=== PATIENT | male | born 1990 | race American Indian/Alaskan Native ===

== ENCOUNTER 2019-03-12 09:14 | Emergency (ER) | payer MEDICAID ==
[2019-03-12 09:24] VITALS: BP 123/86
--- NOTE | 2019-03-12 10:40 | XRay Report ---
CHEST 2 VIEWS INDICATION: c/o fluid in lungs. COMPARISON: None. FINDINGS: Support devices: None. Heart: Within normal limits. Lungs/Pleura: No acute air space or interstitial disease. Minimal blunting left costophrenic angle. IMPRESSION: Suspect tiny left effusion. Signer Name: Cody Griffith MD Signed: 03/12/2019 10:35 AM Workstation Name: [id number]
--- NOTE | 2019-03-12 10:59 | Emergency Department Report ---
ED General Adult HPI - General Chief complaint: Upper Respiratory Infection Stated complaint: FLUID ON LUNGS Time Seen by Provider: 03/12/19 09:58 Source: patient Mode of arrival: Ambulatory Limitations: No Limitations - History of Present Illness Initial comments: 28-year-old -Niuean male with history of HIV Zentz for evaluation due to having a chest x-ray that showed fluid in his lungs 2 days ago. Patient states he was contacted by his primary care physician and informed of his chest x-rays results and told to seek emergency treatment. He denies any chest pain, cough, history of DVT/PE, recent long travel. He states he is having mild shortness of breath with ambulation over the past week. He also reports that when he was at his doctor's office 3 days ago, his pulse ox was noted to be low in the 70s. He denies any leg pain, however states he has had intermittent swelling bilaterally in his legs over the past week. - Related Data Previous Rx's Medication Instructions Recorded Last Taken Type Ferrous Sulfate 325 mg PO BID #60 tablet. 05/05/18 Unknown Rx Allergies Allergy/AdvReac Type Severity Reaction Status Date / Time No Known Allergies Allergy Unverified 05/03/18 10:07 ED Review of Systems ROS: Stated complaint: FLUID ON LUNGS Other details as noted in HPI Comment: All other systems reviewed and negative Respiratory: SOB with exertion. denies: cough, orthopnea, SOB at rest ED Past Medical Hx - Past Medical History Previous Medical History?: Yes Hx HIV: Yes - Surgical History Past Surgical History?: No - Social History Smoking Status: Current Every Day Smoker Substance Use Type: Marijuana - Medications Home Medications: Home Medications Medication Instructions Recorded Confirmed Last Taken Type Ferrous Sulfate 325 mg PO BID #60 tablet. 05/05/18 Unknown Rx ED Physical Exam - General Limitations: No Limitations General appearance: alert, in no apparent distress - Head Head exam: Present: atraumatic, normocephalic - Eye Eye exam: Present: normal appearance - ENT ENT exam: Present: mucous membranes moist - Neck Neck exam: Present: normal inspection, full ROM. Absent: lymphadenopathy - Respiratory Respiratory exam: Present: normal lung sounds bilaterally. Absent: respiratory distress, wheezes, rales, rhonchi, chest wall tenderness - Cardiovascular Cardiovascular Exam: Present: regular rate, normal rhythm. Absent: systolic murmur, diastolic murmur, rubs, gallop - GI/Abdominal GI/Abdominal exam: Present: soft, normal bowel sounds. Absent: distended, tenderness, guarding, rebound, rigid - Rectal Rectal exam: Present: deferred - Extremities Exam Extremities exam: Present: normal inspection. Absent: calf tenderness (no sw elling noted) ED Course Vital Signs 03/12/19 09:20 Temperature 99 F Pulse Rate 105 H Respiratory 20 Rate Blood Pressure 123/86 O2 Sat by Pulse 100 Oximetry ED Medical Decision Making - Lab Data Result diagrams: 03/12/19 11:51 03/12/19 11:51 Lab Results 03/12/19 03/12/19 03/12/19 Range/Units 11:51 11:51 11:51 WBC 7.0 (4.5-11.0) K/mm3 RBC 4.04 (3.65-5.03) M/mm3 Hgb 9.2 L (11.8-15.2) gm/dl Hct 28.8 L (35.5-45.6) % MCV 71 L (84-94) fl MCH 23 L (28-32) pg MCHC 32 (32-34) % RDW 16.4 H (13.2-15.2) % Plt Count 304 (140-440) K/mm3 Lymph % (Auto) 29.2 (13.4-35.0) % [place] % (Auto) 12.6 H (0.0-7.3) % Eos % (Auto) 0.7 (0.0-4.3) % Baso % (Auto) 0.2 (0.0-1.8) % Lymph # 2.0 (1.2-5.4) K/mm3 [place] # 0.9 H (0.0-0.8) K/mm3 Eos # 0.0 (0.0-0.4) K/mm3 Baso # 0.0 (0.0-0.1) K/mm3 Seg Neutrophils % 57.3 (40.0-70.0) % Seg Neutrophils # 4.0 (1.8-7.7) K/mm3 D-Dimer 161.65 (0-234) ng/mlDDU Sodium 138 (137-145) mmol/L Potassium 4.4 (3.6-5.0) mmol/L Chloride 102.7 (98-107) mmol/L Carbon Dioxide 20 L (22-30) mmol/L Anion Gap 20 mmol/L BUN 26 H (9-20) mg/dL Creatinine 1.4 (0.8-1.5) mg/dL Estimated GFR > 60 ml/min BUN/Creatinine Ratio 19 % Glucose 81 (75-100) mg/dL Calcium 9.7 (8.4-10.2) mg/dL Total Bilirubin 0.50 (0.1-1.2) mg/dL AST 33 (5-40) units/L ALT 19 (7-56) units/L Alkaline Phosphatase 100 (35-129) units/L NT-Pro-B Natriuret Pep 38.78 (0-450) pg/mL Total Protein 10.5 H (6.3-8.2) g/dL Albumin 4.0 (3.9-5) g/dL Albumin/Globulin Ratio 0.6 % - Radiology Data Radiology results: report reviewed Two-view chest x-ray shows suspected tiny left effusion - Medical Decision Making Patient eloped prior to reassessment and lab results. Critical care attestation.: If time is entered above; I have spent that time in minutes in the direct care of this critically ill patient, excluding procedure time. ED Disposition Clinical Impression: Pleural effusion, left Disposition: ELOPED Is pt being admited?: No Condition: Stable Referrals: CULLEN DEAN MD [Staff Physician] - 2-3 Days
[2019-03-12 12:38] LABS: Basophils % (Auto) 0.2 % (0.0-1.8); Eosinophils % (Auto) 0.7 % (0.0-4.3); Hematocrit 28.8 % (35.5-45.6); Hemoglobin 9.2 gm/dl (11.8-15.2); Lymphocytes % (Auto) 29.2 % (13.4-35.0); Mean Corpuscular HGB Conc 32 % (32-34); Mean Corpuscular Volume 71 fl (84-94); Monocytes # (Auto) 0.9 K/mm3 (0.0-0.8); Monocytes % (Auto) 12.6 % (0.0-7.3); Platelet Count 304 K/mm3 (140-440); Red Blood Count 4.04 M/mm3 (3.65-5.03); Red Cell Distribution Width 16.4 % (13.2-15.2)
[2019-03-12 13:02] LABS: Alanine Aminotransferase 19 units/L (7-56); BUN/Creatinine Ratio 19; Blood Urea Nitrogen 26 mg/dL (9-20); Calcium 9.7 mg/dL (8.4-10.2); Hemolysis Index 12
== END 2019-03-12 13:21 | disposition left against medical advice (07) ==
LOC: ED 09:14
DX: J90 Pleural effusion, not elsewhere classified (principal); F17.200 Nicotine dependence, unspecified, uncomplicated; F12.10 Cannabis abuse, uncomplicated; Z21 Asymptomatic human immunodeficiency virus [HIV] infection status; Z79.899 Other long term (current) drug therapy
CPT/HCPCS: 36415; 71046; 80053; 83880; 85025; 85379

== ENCOUNTER 2019-07-10 12:59 | Emergency (ER) | payer SELFPAY ==
[2019-07-10 13:12] VITALS: BP 136/94
[2019-07-10] MEDS ORDERED: IBUPROFEN 600 MG TAB PO ONE (13:39)
[2019-07-10] MEDS ORDERED: HYDROcodone/ACETAMINOPHEN 7.5-325MG TAB PO ONE (13:39)
--- NOTE | 2019-07-10 13:43 | Emergency Department Report ---
- General Chief complaint: Skin/Abscess/Foreign Body Stated complaint: LFT ARM BOIL/PAIN Time Seen by Provider: 07/10/19 13:29 Source: patient Mode of arrival: Ambulatory Limitations: No Limitations - History of Present Illness Initial comments: 28-year-old -[place]ian male presents to the emergency room for a boil under his left axillary x3 to 4 days. Patient does admit that he is immune compromise of HIV. Patient states he takes all his medications as prescribed. Patient denies any fever chills no nausea no vomiting no chest pain or shortness of breath. complaint: abscess/boil Onset/Timin -: days(s) Tetanus Up to Date: yes Severity: moderate Quality: stabbing, aching, sharp Consistency: constant Improves with: none Worsens with: palpation, movement Context: none Associated symptoms: denies other symptoms - Related Data Previous Rx's Medication Instructions Recorded Last Taken Type Ferrous Sulfate 325 mg PO BID #60 tablet. 05/05/18 Unknown Rx Acetaminophen/Codeine [Tylenol 1 tab PO Q6H PRN #12 tab 07/10/19 Unknown Rx /Codeine # 3 tab] Doxycycline Hyclate [Doxycycline 100 mg PO Q12HR 10 Days #20 tab 07/10/19 Unknown Rx Hyclate TAB] Ibuprofen [Motrin 600 MG tab] 600 mg PO Q8H PRN #21 tablet 07/10/19 Unknown Rx Allergies Allergy/AdvReac Type Severity Reaction Status Date / Time No Known Allergies Allergy Unverified 05/03/18 10:07 Abscess Boil HPI - HPI Chief Complaint: Skin/Abscess/Foreign Body Stated Complaint: LFT ARM BOIL/PAIN Time Seen by Provider: 07/10/19 13:29 Home Medications: Previous Rx's Medication Instructions Recorded Last Taken Type Ferrous Sulfate 325 mg PO BID #60 tablet. 05/05/18 Unknown Rx Acetaminophen/Codeine [Tylenol 1 tab PO Q6H PRN #12 tab 07/10/19 Unknown Rx /Codeine # 3 tab] Doxycycline Hyclate [Doxycycline 100 mg PO Q12HR 10 Days #20 tab 07/10/19 Unknown Rx Hyclate TAB] Ibuprofen [Motrin 600 MG tab] 600 mg PO Q8H PRN #21 tablet 07/10/19 Unknown Rx Allergies/Adverse Reactions: Allergies Allergy/AdvReac Type Severity Reaction Status Date / Time No Known Allergies Allergy Unverified 05/03/18 10:07 ED Review of Systems ROS: Stated complaint: LFT ARM BOIL/PAIN Other details as noted in HPI Comment: All other systems reviewed and negative ED Past Medical Hx - Past Medical History Hx HIV: Yes - Social History Smoking Status: Never Smoker Substance Use Type: Marijuana - Medications Home Medications: Home Medications Medication Instructions Recorded Confirmed Last Taken Type Ferrous Sulfate 325 mg PO BID #60 tablet. 05/05/18 Unknown Rx Acetaminophen/Codeine [Tylenol 1 tab PO Q6H PRN #12 tab 07/10/19 Unknown Rx /Codeine # 3 tab] Doxycycline Hyclate [Doxycycline 100 mg PO Q12HR 10 Days #20 tab 07/10/19 Unknown Rx Hyclate TAB] Ibuprofen [Motrin 600 MG tab] 600 mg PO Q8H PRN #21 tablet 07/10/19 Unknown Rx ED Physical Exam - General Limitations: No Limitations General appearance: alert, in no apparent distress - Head Head exam: Present: atraumatic, normocephalic - Eye Eye exam: Present: normal appearance - ENT ENT exam: Present: mucous membranes moist - Neurological Exam Neurological exam: Present: alert, oriented X3, normal gait - Psychiatric Psychiatric exam: Present: normal affect, normal mood - Expanded Skin Exam Expanded Type of lesion: Present: abscess Distribution of rash: other (Left axillary) Description of rash: Present: size (Golf ball), tenderness, erythematous, swelling, fluctuant ED Course Vital Signs 07/10/19 13:09 Temperature 98.6 F Pulse Rate 89 Respiratory 18 Rate Blood Pressure 136/94 O2 Sat by Pulse 100 Oximetry - I & D Left Arm Type of Procedure: Simple Site: 3 x 3 cm Blade Size: 11 I & D Procedure: betadine prep, sterile drapes applied, sterile dressing applied Progress: Patient tolerated procedure well ED Medical Decision Making - Medical Decision Making 28-year-old -[place]ian male presents to the emergency room for a boil under his left axillary x3 to 4 days. Patient does admit that he is immune compromise of HIV. Patient states he takes all his medications as prescribed. Patient denies any fever chills no nausea no vomiting no chest pain or shortness of breath. Critical care attestation.: If time is entered above; I have spent that time in minutes in the direct care of this critically ill patient, excluding procedure time. ED Disposition Clinical Impression: Abscess of left axilla Disposition: - TO HOME OR SELFCARE Is pt being admited?: No Does the pt Need Aspirin: No Condition: Stable Instructions: Abscess (ED) Additional Instructions: Complete antibiotics as prescribed. Take pain medication as needed do not operate heavy machinery while taking Tylenol 3. Keep wound clean and dry follow-up with your primary care provider. Prescriptions: Doxycycline Hyclate [Doxycycline Hyclate TAB] 100 mg PO Q12HR 10 Days #20 tab Ibuprofen [Motrin 600 MG tab] 600 mg PO Q8H PRN #21 tablet PRN Reason: Pain Acetaminophen/Codeine [Tylenol /Codeine # 3 tab] 1 tab PO Q6H PRN #12 tab PRN Reason: Pain , Severe (7-10) Referrals: PRIMARY CARE, [Primary Care Provider] - 3-5 Days [facility] [Provider Group] - 3-5 Days
[2019-07-10] MEDS ORDERED: LIDOCAINE (2%) 20 MG/1 ML VIAL 20 ML MDV INFILTRATI ONE (14:00)
== END 2019-07-10 15:05 | disposition home or self-care (01) ==
LOC: ED 12:59
DX: L02.412 Cutaneous abscess of left axilla (principal); F12.10 Cannabis abuse, uncomplicated; Z79.1 Long term (current) use of non-steroidal anti-inflammatories (NSAID); Z79.899 Other long term (current) drug therapy; Z21 Asymptomatic human immunodeficiency virus [HIV] infection status

== ENCOUNTER 2021-05-31 07:14 | Emergency (ER) | payer MEDICARE ==
[2021-05-31 07:43] VITALS: BP 123/74
[2021-05-31] MEDS ORDERED: oxyCODONE /ACETAMINOPHEN 5-325MG TAB PO ONE (08:42)
[2021-05-31] MEDS ORDERED: LIDOCAINE (1%) 10 MG/1 ML VIAL 20 ML MDV INFILTRATI ONE (08:42)
[2021-05-31] MEDS ORDERED: IBUPROFEN 800 MG TAB PO STA (08:42)
--- NOTE | 2021-05-31 08:49 | Emergency Department Report ---
ED General Adult HPI - General Chief complaint: Skin/Abscess/Foreign Body Stated complaint: ABSCESS Time Seen by Provider: 05/31/21 08:20 Source: patient Mode of arrival: Ambulatory Limitations: No Limitations - History of Present Illness Initial comments: 30-year-old -[place] Islander male patient presents complaints of left axillary abscess x1 week. He states history of a similar abscess in the area a few years ago. He denies any IV drug use, fever/chills/sweats, or difficulty moving his arm. He rates his pain as a 10/10 in severity. Patient has past medical history of HIV -: Sudden - Related Data Previous Rx's Medication Instructions Recorded Last Taken Type Ferrous Sulfate 325 mg PO BID #60 tablet. 05/05/18 Unknown Rx Acetaminophen/Codeine [Tylenol 1 tab PO Q6H PRN #12 tab 07/10/19 Unknown Rx /Codeine # 3 tab] Doxycycline Hyclate [Doxycycline 100 mg PO Q12HR 10 Days #20 tab 07/10/19 Unknown Rx Hyclate TAB] Ibuprofen [Motrin 600 MG tab] 600 mg PO Q8H PRN #21 tablet 07/10/19 Unknown Rx Acetaminophen/Codeine [Tylenol 1 tab PO Q8H PRN #8 tab 05/31/21 Unknown Rx /Codeine # 3 tab] Clindamycin [Clindamycin CAP] 300 mg PO Q6H 10 Days #40 cap 05/31/21 Unknown Rx Ibuprofen [Motrin 800 MG tab] 800 mg PO TID PRN #20 tablet 05/31/21 Unknown Rx Mupirocin [Bactroban 2% OINT] 1 applic TP TID 10 Days #1 tube 05/31/21 Unknown Rx Allergies Allergy/AdvReac Type Severity Reaction Status Date / Time No Known Allergies Allergy Unverified 05/03/18 10:07 ED Review of Systems ROS: Stated complaint: ABSCESS Other details as noted in HPI Constitutional: denies: chills, fever, malaise Musculoskeletal: denies: joint swelling, arthralgia Skin: as per HPI Neurological: denies: numbness, paresthesias ED Past Medical Hx - Past Medical History Hx HIV: Yes - Social History Smoking Status: Never Smoker Substance Use Type: Marijuana - Medications Home Medications: Home Medications Medication Instructions Recorded Confirmed Last Taken Type Ferrous Sulfate 325 mg PO BID #60 tablet. 05/05/18 Unknown Rx Acetaminophen/Codeine [Tylenol 1 tab PO Q6H PRN #12 tab 07/10/19 Unknown Rx /Codeine # 3 tab] Doxycycline Hyclate [Doxycycline 100 mg PO Q12HR 10 Days #20 tab 07/10/19 Unknown Rx Hyclate TAB] Ibuprofen [Motrin 600 MG tab] 600 mg PO Q8H PRN #21 tablet 07/10/19 Unknown Rx Acetaminophen/Codeine [Tylenol 1 tab PO Q8H PRN #8 tab 05/31/21 Unknown Rx /Codeine # 3 tab] Clindamycin [Clindamycin CAP] 300 mg PO Q6H 10 Days #40 cap 05/31/21 Unknown Rx Ibuprofen [Motrin 800 MG tab] 800 mg PO TID PRN #20 tablet 05/31/21 Unknown Rx Mupirocin [Bactroban 2% OINT] 1 applic TP TID 10 Days #1 tube 05/31/21 Unknown Rx ED Physical Exam - General Limitations: No Limitations General appearance: alert, in no apparent distress - Head Head exam: Present: atraumatic, normocephalic - Eye Eye exam: Present: normal appearance - Respiratory Respiratory exam: Absent: respiratory distress - Cardiovascular Cardiovascular Exam: Present: regular rate - Expanded Upper Extremity Exam Left Shoulder Exam: Present: normal inspection, full ROM Upper Arm exam: Present: full ROM, other (Approximately 2 to 3 cm round erythemic abscess noted with significant tenderness to palpation and central fluctuance; mild surrounding erythema noted;) - Neurological Exam Neurological exam: Present: alert, oriented X3 - Psychiatric Psychiatric exam: Present: normal affect, normal mood - Skin Skin exam: Present: warm, dry, intact ED Course Vital Signs 05/31/21 07:40 Temperature 98.6 F Pulse Rate 82 Respiratory 16 Rate Blood Pressure 123/74 [Left] O2 Sat by Pulse 96 Oximetry - I & D Left Arm Site: Left axilla Blade Size: 11 I & D Procedure: betadine prep, sterile drapes applied, sterile dressing applied Progress: 8 cc of lidocaine 1% without epi used to anesthetize area. Moderate purulent drainage obtained from wound. Wound culture sent. Patient had minimal bleeding and tolerated procedure well without any immediate complications ED Medical Decision Making - Medical Decision Making 30-year-old -[place] male patient presents complaints of left axillary abscess x1 week. He states history of a similar abscess in the area a few years ago. He denies any IV drug use, fever/chills/sweats, or difficulty moving his arm. He rates his pain as a 10/10 in severity. Patient has past medical history of HIV I&D performed. Prescription for clindamycin and mupirocin given for home. Discussed in detail wound care and signs and symptoms that should prompt immediate return to the ED with patient verbalized understanding. He is to return to the ED in 2 days for wound recheck or follow-up with his primary care doctor for wound recheck. Critical care attestation.: If time is entered above; I have spent that time in minutes in the direct care of this critically ill patient, excluding procedure time. ED Disposition Clinical Impression: Abscess of axilla, left Disposition: 01 HOME / SELF CARE / HOMELESS Is pt being admited?: No Condition: Stable Instructions: Skin Abscess, [id number], Incision and Drainage, Care After Prescriptions: Mupirocin [Bactroban 2% OINT] 1 applic TP TID 10 Days #1 tube Clindamycin [Clindamycin CAP] 300 mg PO Q6H 10 Days #40 cap Ibuprofen [Motrin 800 MG tab] 800 mg PO TID PRN #20 tablet PRN Reason: Pain, Moderate (4-6) Acetaminophen/Codeine [Tylenol /Codeine # 3 tab] 1 tab PO Q8H PRN #8 tab PRN Reason: Pain , Severe (7-10) Referrals: PRIMARY CARE, [Referring] - 3-5 Days Forms: Work/School Release Form(ED)
== END 2021-05-31 10:31 | disposition home or self-care (01) ==
LOC: ED 07:14
DX: L02.412 Cutaneous abscess of left axilla (principal); F12.90 Cannabis use, unspecified, uncomplicated; Z79.899 Other long term (current) drug therapy
CPT/HCPCS: 10060; 87076; 87116; 87186; 99283; J3490

== ENCOUNTER 2021-12-06 07:18 | Emergency (ER) | payer MEDICARE ==
--- NOTE | 2021-12-06 14:49 | Emergency Department Report ---
ED General Adult HPI - General Chief complaint: Skin/Abscess/Foreign Body Stated complaint: BOIL ON BUTTOCKS Time Seen by Provider: 12/06/21 14:26 Source: patient Mode of arrival: Ambulatory Limitations: No Limitations - History of Present Illness Initial comments: Patient is a 31-year-old HIV-positive male who presents with rectal pain and what he believes is an abscess as well as what he believes is an abscess in his right groin. He denies any fever or chills. He has had some mild sore throat, myalgias and fatigue over the last several days. He states that the "abscess" has been there for about a week. He has been vaccinated for monkey pox sometime within the last 3 weeks. He does not know his viral load or CD4 count as he has not been seeing the doctor much since COVID started. Associated Symptoms: fever/chills, headaches, malaise, rash. denies: confusion, chest pain, cough, diaphoresis, loss of appetite, nausea/vomiting, seizure, shortness of breath, syncope, weakness Treatments Prior to Arrival: none - Related Data Previous Rx's Medication Instructions Recorded Last Taken Type Ferrous Sulfate 325 mg PO BID #60 tablet. 05/05/18 Unknown Rx Acetaminophen/Codeine [Tylenol 1 tab PO Q6H PRN #12 tab 07/10/19 Unknown Rx /Codeine # 3 tab] Doxycycline Hyclate [Doxycycline 100 mg PO Q12HR 10 Days #20 tab 07/10/19 Unknown Rx Hyclate TAB] Ibuprofen [Motrin 600 MG tab] 600 mg PO Q8H PRN #21 tablet 07/10/19 Unknown Rx Acetaminophen/Codeine [Tylenol 1 tab PO Q8H PRN #8 tab 05/31/21 Unknown Rx /Codeine # 3 tab] Clindamycin [Clindamycin CAP] 300 mg PO Q6H 10 Days #40 cap 05/31/21 Unknown Rx Ibuprofen [Motrin 800 MG tab] 800 mg PO TID PRN #20 tablet 05/31/21 Unknown Rx Mupirocin [Bactroban 2% OINT] 1 applic TP TID 10 Days #1 tube 05/31/21 Unknown Rx Allergies Allergy/AdvReac Type Severity Reaction Status Date / Time No Known Allergies Allergy Unverified 05/03/18 10:07 ED Review of Systems ROS: Stated complaint: BOIL ON BUTTOCKS Other details as noted in HPI Comment: All other systems reviewed and negative Constitutional: fever, malaise. denies: chills Eyes: denies: eye pain, eye discharge, vision change ENT: throat pain (Sore throat), other. denies: ear pain Respiratory: denies: cough, shortness of breath, wheezing Cardiovascular: denies: chest pain, palpitations Endocrine: no symptoms reported Gastrointestinal: denies: abdominal pain, nausea, diarrhea Genitourinary: denies: urgency, dysuria Musculoskeletal: denies: back pain, joint swelling, arthralgia Skin: as per HPI Neurological: denies: headache, weakness, paresthesias Psychiatric: denies: anxiety, depression Hematological/Lymphatic: denies: easy bleeding, easy bruising ED Past Medical Hx - Past Medical History Previous Medical History?: Yes Hx HIV: Yes (Viral load and CD4 count done 2 weeks ago and values unknown) - Surgical History Past Surgical History?: No - Social History Smoking Status: Never Smoker Substance Use Type: Marijuana - Medications Home Medications: Home Medications Medication Instructions Recorded Confirmed Last Taken Type Ferrous Sulfate 325 mg PO BID #60 tablet. 05/05/18 Unknown Rx Acetaminophen/Codeine [Tylenol 1 tab PO Q6H PRN #12 tab 07/10/19 Unknown Rx /Codeine # 3 tab] Doxycycline Hyclate [Doxycycline 100 mg PO Q12HR 10 Days #20 tab 07/10/19 Unknown Rx Hyclate TAB] Ibuprofen [Motrin 600 MG tab] 600 mg PO Q8H PRN #21 tablet 07/10/19 Unknown Rx Acetaminophen/Codeine [Tylenol 1 tab PO Q8H PRN #8 tab 05/31/21 Unknown Rx /Codeine # 3 tab] Clindamycin [Clindamycin CAP] 300 mg PO Q6H 10 Days #40 cap 05/31/21 Unknown Rx Ibuprofen [Motrin 800 MG tab] 800 mg PO TID PRN #20 tablet 05/31/21 Unknown Rx Mupirocin [Bactroban 2% OINT] 1 applic TP TID 10 Days #1 tube 05/31/21 Unknown Rx ED Physical Exam - General Limitations: No Limitations General appearance: alert, in no apparent distress - Head Head exam: Present: atraumatic, normocephalic - Eye Eye exam: Present: normal appearance - ENT ENT exam: Present: mucous membranes moist, other (Throat with mild to moderate erythema and scant exudate) - Neck Neck exam: Present: normal inspection - Respiratory Respiratory exam: Present: normal lung sounds bilaterally. Absent: respiratory distress - Cardiovascular Cardiovascular Exam: Present: regular rate, normal rhythm. Absent: systolic murmur, diastolic murmur, rubs, gallop - GI/Abdominal GI/Abdominal exam: Present: soft, normal bowel sounds - Rectal Rectal exam: Present: other (Pox type rash of the perirectal area. Right inguinal lymphadenopathy.) - Extremities Exam Extremities exam: Present: normal inspection - Back Exam Back exam: Present: normal inspection - Neurological Exam Neurological exam: Present: alert, oriented X3 - Psychiatric Psychiatric exam: Present: normal affect, normal mood - Skin Skin exam: Present: warm, dry, intact, normal color, rash (Pox type rash around the perirectal area) ED Course Vital Signs 12/06/21 12/06/21 08:20 15:21 Temperature 99.2 F 98.6 F Pulse Rate 93 H 80 Respiratory 18 18 Rate Blood Pressure 141/99 144/98 [Left] O2 Sat by Pulse 99 99 Oximetry ED Medical Decision Making - Medical Decision Making Patient is a 31-year-old HIV positive male who is sexually active with a male partner. He presents with perirectal rash which she thought was an abscess but appears to be likely monkey pox. He did have his vaccine but second dose was less than 2 weeks ago. And his rash started approximately a week ago. Likely contracted prior to second dose. He was also off of his HIV medications for the entire month of September and October. Last viral load and CD4 count were drawn last week but values unknown. He does [facility] We will have him follow-up with [facility] for confirmatory testing and antiviral therapy if positive. Follow-up with primary care physician (call today for appointment) and go to [place] or [facility] if any worsening of symptoms. - Differential Diagnosis Perirectal rash. Likely Monkey pox Critical care attestation.: If time is entered above; I have spent that time in minutes in the direct care of this critically ill patient, excluding procedure time. ED Disposition Clinical Impression: Rash, Rectal pain Disposition: HOME / SELF CARE / HOMELESS Is pt being admited?: No Condition: Stable Instructions: Rash, Adult, [id number] Additional Instructions: Likely monkey proximal. Follow-up with [facility] for confirmatory testing and antiviral therapy if positive. Follow-up with primary care physician (call today for appointment) and go to [place] or [facility] if any worsening of symptoms. Referrals: [facility] [Outside] - 3-5 Days Time of Disposition: 15:08
[2021-12-06 15:22] VITALS: BP 144/98
== END 2021-12-06 15:21 | disposition home or self-care (01) ==
LOC: ED 07:18
DX: K62.89 Other specified diseases of anus and rectum (principal); R21 Rash and other nonspecific skin eruption
CPT/HCPCS: 99282